=== PATIENT | female | born 1950 | race Caucasian/White ===

== ENCOUNTER 2019-03-28 10:00 | Inpatient (IN) | payer OTHER ==
[2019-03-20 12:41] VITALS: BMI 30.9
[2019-04-03] MEDS ORDERED: CEFAZOLIN 2 GM in DEXTROSE 5%-WATER - 100 ML IVPB ONE (14:55)
[2019-04-04] MEDS ORDERED: DEXAMETHASONE SOD PHOSPHATE/PF 10 MG/ML SDV ONE (10:47)
[2019-04-04] MEDS ORDERED: MIDAZOLAM HCL 2 MG/2 ML SINGLE DOSE VIAL ONE ×2 (10:47→12:44)
[2019-04-04] MEDS ORDERED: CEFAZOLIN 2 GM in DEXTROSE 5%-WATER - 50 ML IVPB ONE (12:19)
[2019-04-04] MEDS ORDERED: VANCOMYCIN 1,000 MG in DEXTROSE 5%-WATER - 250 ML IVPB ONE (12:19)
[2019-04-04] MEDS ORDERED: TRANEXAMIC ACID 1000 MG/10 ML VIAL IVPUSH ONE (12:19)
--- NOTE | 2019-04-04 12:21 | PN ---
Progress Note (short form) - Note Progress Note: 69F s/p RIGHT total hip replacement POD #0. -Pain control: per anaesthesia team. -DVT PPx: -Chemical: ASA 81mg PO BID x 6 weeks. -Mechanical: TJ's, SCD's. -Incentive spirometry q15 min. -PT/OT/Rehab, OOB. -WBAT RLE. -Post-op Ancef x 3 doses. -f/u post-op TOV: 8 hours max. -f/u AM labs. -Diet as tolerated. -Care per medical hospitalist team. -Discharge planning: f/u [facility] [place] [facility] 7-10 days after hospital discharge; call for appointment . -Will follow. Heladio Williamson MD (Orthopaedic Surgery).
--- NOTE | 2019-04-04 12:23 | OP ---
Operative Note - Note: Operative Date: 04/04/19 Pre-Operative Diagnosis: Right hip osteoarthritis Operation: Right total hip replacement Implants: [place]. Cup - Trident-II Tritanium 48. Poly - 32mm, neutral. Stem - Accolade II, #4, high offset. Head - 32mm diameter, -4mm length Biolox/Delta Ceramic Post-Operative Diagnosis: Same as Pre-op Surgeon: Heladio Williamson Tool Technician: Silas Williamson Anesthesiologist/CASTING TECHNICIAN: Digna Faria Anesthesia: Spinal Specimens Removed: Right femoral head Estimated Blood Loss (mls): 150 Fluid Volume Replaced (mls): 1,500 (Crystalloid) Operative Report Dictated: Yes
[2019-04-04] MEDS ORDERED: TRANEXAMIC ACID 1000 MG/10 ML VIAL ONE ×2 (12:44→15:27)
[2019-04-04] MEDS ORDERED: DEXAMETHASONE SOD PHOSPHATE 4 MG/1 ML VIAL ONE (13:57)
[2019-04-04] MEDS ORDERED: ONDANSETRON 4 MG/2 ML VIAL ONE (13:57)
[2019-04-04] MEDS ORDERED: ceFAZolin SODIUM 1 GM VIAL ONE ×2 (13:57→15:27)
[2019-04-04] MEDS ORDERED: SODIUM CHLORIDE 0.9% P/F 10 ML VIAL IJ ONE (14:35)
[2019-04-04] MEDS ORDERED: MORPHINE SULFATE 10 MG/1 ML *VIAL ONE ×2 (14:47→14:48)
[2019-04-04] MEDS ORDERED: PROPOFOL 20 ML ONE ×2 (14:53)
[2019-04-04] MEDS ORDERED: MAG HYDROX/AL HYDROX/SIMETH 30 ML UNIT-DOSE CUP PO PRN (16:29)
[2019-04-04] MEDS ORDERED: ONDANSETRON 4 MG/2 ML VIAL IVPUSH PRN ×2 (16:29→16:33)
[2019-04-04] MEDS ORDERED: MAGNESIUM HYDROX 2400MG/30ML ORAL SUSPENSION 30 ML CUP PO PRN (16:29)
[2019-04-04] MEDS ORDERED: oxyCODONE HCL 5 MG TABLET PO PRN (16:30)
[2019-04-04] MEDS ORDERED: LACTATED RINGERS SOLUTION 1,000 ML IV SCH ×2 (16:30→16:45)
[2019-04-04] MEDS: ACETAMINOPHEN 1000 MG/100 ML VIAL (NON FORMULARY) IVPB ONE ×2 (16:40→17:43)
--- NOTE | 2019-04-04 16:55 | HP ---
HISTORY OF PRESENT ILLNESS: 69 year-old female with a PMH significant for HTN, HLD and degenerative joint disease s/p right total hip replacement earlier today with Dr. Williamson. PAST MEDICAL HISTORY: Hypertension Hyperlipidemia Degenerative joint disease PAST SURGICAL HISTORY: Left foot surgery Social History: Smoking: never Alcohol: no Drugs: no Family history: mother [place]; father [place] Allergies No Known Drug Allergies Allergy (Verified 04/04/19 11:17) seasonal Allergy (Uncoded 03/20/19 12:28) HOME MEDICATIONS: Home Medications Medication Instructions Recorded Allopurinol 300 mg PO DAILY 03/20/19 Amlodipine Besylate/Benazepril 2 each PO DAILY 03/20/19 [Amlodipine-Benazepril 5-20 mg] Aspirin [Adult Aspirin Regimen] 81 mg PO DAILY 03/20/19 Cholecalciferol (Vitamin D3) 2,000 unit PO DAILY 03/20/19 [Vitamin D] Cyanocobalamin (Vitamin B-12) 2,500 mcg PO DAILY 03/20/19 [Vitamin B12] Furosemide [Lasix -] 20 mg PO DAILY 03/20/19 Ibuprofen/Famotidine [Duexis 1 each PO BID PRN 03/20/19 800-26.6 mg Tablet] Loratadine 10 mg PO DAILY PRN 03/20/19 Magnesium 200 mg PO DAILY 03/20/19 Multivitamin [One-Daily 1 each PO DAILY 03/20/19 Multi-Vitamin] Potassium 99 mg PO DAILY 03/20/19 Simvastatin [Zocor] 20 mg PO DAILY 03/20/19 REVIEW OF SYSTEMS CONSTITUTIONAL: Absent: fever, chills, diaphoresis, generalized weakness, malaise, loss of appetite, weight change HEENT: Absent: rhinorrhea, nasal congestion, throat pain, throat swelling, difficulty swallowing, mouth swelling, ear pain, eye pain, visual changes CARDIOVASCULAR: Absent: chest pain, syncope, palpitations, irregular heart rate, lightheadedness , peripheral edema RESPIRATORY: Absent: cough, shortness of breath, dyspnea with exertion, orthopnea, wheezing, stridor, hemoptysis GASTROINTESTINAL: Absent: abdominal pain, abdominal distension, nausea, vomiting, diarrhea, constipation, melena, hematochezia GENITOURINARY: Absent: dysuria, frequency, urgency, hesitancy, hematuria, flank pain, genital pain MUSCULOSKELETAL: Absent: myalgia, arthralgia, joint swelling, back pain, neck pain SKIN: Absent: rash, itching, pallor HEMATOLOGIC/IMMUNOLOGIC: Absent: easy bleeding, easy bruising, lymphadenopathy, frequent infections ENDOCRINE: Absent: unexplained weight gain, unexplained weight loss, heat intolerance, cold intolerance NEUROLOGIC: Absent: headache, focal weakness or paresthesias, dizziness, unsteady gait, seizure, mental status changes, bladder or bowel incontinence PSYCHIATRIC: Absent: anxiety, depression, suicidal or homicidal ideation, hallucinations. PHYSICAL EXAMINATION Vital Signs - 24 hr 04/04/19 11:20 Temperature 98.6 F Pulse Rate 104 H Respiratory 16 Rate Blood Pressure 147/78 GENERAL: Awake, alert, and fully oriented, in no acute distress. LUNGS: Breath sounds equal, clear to auscultation bilaterally. No wheezes, and no crackles. No accessory muscle use. HEART: Regular rate and rhythm, normal S1 and S2 ABDOMEN: Soft, nontender, not distended UPPER EXTREMITIES: 2+ pulses, warm, well-perfused. No cyanosis. No clubbing. No peripheral edema. LOWER EXTREMITIES: 2+ pulses, warm, well-perfused. No calf tenderness. No peripheral edema. RLE: Surgical right hip dressing c/d/i, no drain NEUROLOGICAL: Cranial nerves II-XII intact. Normal speech. Pre op Hgb 13.4 BUN 24 Cr 0.9 Intra op Ancef total 3g, vanc 1g EBL 150mL LR 1500mL ASSESSMENT/PLAN: 69 year-old female with a PMH significant for HTN, HLD and degenerative joint disease s/p right total hip replacement earlier today with Dr. Williamson. --POD #0 --perioperative antibiotics per surgery --pain management per surgery --ASA 81mg BID --protonix --bowel regimen --incentive spirometry --no jc, no drains Hypertension --continue amlodipine, lisinopril, lasix in am Hyperlipidemia --continue statin FEN Fluids: LR@125mL/hr Electrolytes: replete as indicated Nutrition: regular diet DVT prophylaxis: OOB, ambulation, SCDs, TEDs, ASA 81mg BID Physical therapy Dispo: continues to require inpatient care. Full code. Visit type - Emergency Visit Emergency Visit: No - New Patient This patient is new to me today: Yes Date on this admission: 04/04/19 - Critical Care Critical Care patient: No
--- NOTE | 2019-04-04 20:41 | OP ---
Date of Operation: 04/04/2019 Surgeon: Heladio Williamson M.D. Home Stereo Equipment Installer: Silas Williamson M.D., Mikal Estrada P.A.-C. Pre-Operative Diagnosis: Primary osteoarthritis right hip. Post-Operative Diagnosis: Primary osteoarthritis right hip. Surgical Procedure: Right total hip replacement via Direct Suprior approach. Anaesthesia: Spinal, block. Position: Left lateral decubitus. Incision: Direct superior. Estimated Blood Loss: 150cc. Intravenous Fluid: 1.5L crystalloid. Specimens: Right femoral head. Drains: None. Complications: None. Urine output: None. Bacteriology: None. Transfusions: None. Closure: #1 Vicryl, 3-0 Biosyn. Indications: The patient was indicated for a right total hip replacement in order to facilitate improved motion and mobilization, and to prevent the complications associated with a sedentary lifestyle. The patient was identified in the holding area by her armband. A long discussion was held with the patient (in the presence of the patient's family) regarding the risks, benefits and alternatives of the above named procedure. Risks include but are not limited to: pain, bleeding, infection, damage to surrounding structures (including nerves, blood vessels, skin, ligaments, tendons and bone), wound complications, failure of hardware/implants/ reduction, leg length discrepancy, need for further surgery, blood clots, myocardial infarction, pulmonary embolism, cerebrovascular insult, anaesthesia complications, compartment syndrome, limb loss, limp, loss of function, and . Benefits as mentioned above. Alternatives include no surgery. All questions were answered. The patient understood and agreed to the procedure. Informed consent was obtained, witnessed and verified. The patients correct operative limb - that is the right lower extremity - was marked, and the patient was taken to the operating room after being seen by the anesthesia and nursing staff. Procedure: The patient was brought into the operating room, placed on the OR table and secured with a safety strap. Consent and the operative site were again verified with the patient and nursing and anaesthesia staff. Anaesthesia, IV antibiotics, and TXA were then administered without complication. A time out was done, led by me the attending surgeon. A pre-operative orthpaedic exam revealed a flexion contracture of the left knee with the left lower extremity being approximately 1-1.5cm shorter than the right lower extremity. The patient was gently turned into the left lateral decubitus position. An axillary roll was placed. A Stulberg hip positioner with well-padded bolsters was used to secure the patient in the lateral decubitus position. The down arm was placed on a well-padded arm board. The up arm was brought across the patients body and placed on 2 pillows. Foam egg crates were placed under the down knee and ankle, and bony prominences were well padded. The operative site was then prepped and draped in the standard sterile fashion. Time out was again done and the case began. Operation: A standard Direct Superior surgical approach was utilized to access the hip joint. With a #10 blade, a skin incision was taken from the posterior-superior corner of the greater trochanter in a posterior-superior direction. This was approximately 10cm in length. Electrocautery was utilized to carry the deep dissection down to the level of the gluteus wan fascia. Hemostasis was assured using electrocautery (bipolar and unipolar). The gluteus wan fascia was incised, and the fibers of gluteus wan were in line with the trajectory of the incision. This confirmed the accuracy of our planned incision based on palpated landmarks and surface anatomy. A Almaguer elevator was used to split the distal fibers of gluteus wan, in line with the fibers, just proximal to their insertion into the iliotibial band. Great care was taken not to incise the iliotibial band. Gluteus wan fibers were split proximally using the Almaguer elevator until reaching the apex of the wound. Again, hemostasis was assured. The rosalind-capsular fat pad was exposed utilizing curved handle bar retractors. The rosalind-capsular fat pad was excised off the inferior border of the gluteus medius muscle belly, exposing the insertion of the hip short external rotator muscle group. The piriformis tendon was identified and freed from adhesions to the capsule using a 90-degree clamp. This tendon was then released from its insertion using electrocautery. The tendon was tagged with a # 2 Fiberwire suture and tied to the inferior aspect of the proximal wound apex. The tendon, thus, served as a sling to retract and protect the sciatic nerve. With the piriformis tendon reflected away from its insertion, the hip joint capsule was visualized. Electrocautery was used to perform a capsulotomy and synovial joint fluid was aspirated. Next, the superior leaflet of the capsule was elevated using a Almaguer elevator to create separation from the underlying labrum and also to create a plane for later placement of a supra-acetabular retractor. The labrum was excised using electrocautery. The hip was then gently dislocated. A standard femoral neck cut was made using an oscillating saw. A threaded Steinmann pin was delivered into the femoral head using mallet strikes. The femoral head was then removed. Anterior, inferior, and supra- acetabular retractors were placed to expose the acetabulum. The pulvinar was excised using electrocautery. Sharp basket reamers were used to prepare the acetabular bone bed. Healthy blushes of bleeding were observed from the reamed cancellous bone bed. Next, a size 48mm [place] Trident cup was impacted into position, achieving excellent press-fit. A size 32mm neutral polyethylene liner was then impacted into the cup. Excellent placement of the polyethylene liner, and excellent press fit of the cup were confirmed. Next, attention was turned to femoral preparation. The anterior and supra-acetabular retractors were removed. The cut femoral neck was then exposed using the inferior acetabular retractor around the calcar, and a straight 90-degree retractor to retract gluteus medius. The box-cutter osteotome was used with a mallet to removed bone from the lateral femoral neck. An opening reamer was delivered by hand to find the femoral canal. A lateralizing reamer was used with power to lateralize the proximal entry into the canal, so as to avoid placing the stem into varus. The femoral bone bed was then prepared using broaches with gentle mallet strikes. The tibia was used as a goniometer with which to dial in approximately 5 degrees of stem anteversion. Trial components were assembled and the hip was reduced. The hip was taken through a full range of motion and proved stable throughout this range of motion, including at the extremes of positions of compromised. All trial femoral components were removed. Another 1g of IV Ancef was administered so that the bone bed would be rich with antibiotic at the time of seating of the femoral implant. A [place] Accolade II (127-degree NSA, high offset) #4 stem was then implanted using gentle mallet strikes, diligently matching the prepared degree of stem anteversion. With the stem fully seated, a 32mm length, -4mm diameter ceramic/Biolox femoral head was then selected and implanted. The hip was once again reduced, and taken through a full range of motion. Stability was once again assured. The periarticular myofascial tension was balanced. Leg length was satisfactory. The wounds were copiously irrigated , as they had been regularly throughout the case so as to keep the retracted tissues wet, and in order to flush out wound debris. The capsule was primarily repaired using #1 Vicryl sutures in simple interrupted fashion. The tagged piriformis tendon was released and too tight to be tied to the posterior- lateral corner of the greater trochanter. The remaining wounds were again irrigated. Hemostasis was assured and the wound was closed primarily using #1 Vicryl sutures. A 3-0 Biosyn suture was used to perform a subcuticular wound closure. A sterile, compressive dressing was applied. The sponge and needle counts were correct at the end of the case and the attending was present and scrubbed throughout the case. The patient was then transferred into a supine position and onto the hospital bed. A standard AP-pelvis x-ray was taken, demonstrating good overall alignment with a well reduced, congruent hip. There was no evidence of subsidence, loosening, or rosalind-prosthetic fracture. The patient was then was then transferred to the recovery room without incident/complications and in stable condition, having tolerated the procedure well. MD MEG [id number] MTDD
[2019-04-04] MEDS: oxyCODONE HCL 10 MG SUSTAINED ACTING TABLET PO SCH (21:16)
[2019-04-04] MEDS: SENNOSIDES/DOCUSATE COMBO (SENNA PLUS) TABLET (UD) PO SCH (21:16)
[2019-04-04] MEDS: oxyCODONE HCL 5 MG TABLET PO PRN (21:17)
[2019-04-04] MEDS: ACETAMINOPHEN 325 MG TABLET (FP) PO SCH (21:18)
[2019-04-04] MEDS: CEFAZOLIN 1 GM/D5W 1 GM/50 ML BAG IVPB SCH (21:18)
[2019-04-04] MEDS ORDERED: ASPIRIN 81 MG CHEWABLE TABLETS ONE (21:20)
[2019-04-04] MEDS ORDERED: ASPIRIN 325 MG TABLET PO SCH (22:00)
[2019-04-04] MEDS ORDERED: ATORVASTATIN CA 10 MG TABLET (FP) PO SCH (22:00)
[2019-04-05] MEDS: ACETAMINOPHEN 325 MG TABLET (FP) PO SCH ×3 (03:13→15:34)
[2019-04-05] MEDS: CEFAZOLIN 1 GM/D5W 1 GM/50 ML BAG IVPB SCH ×2 (03:37→09:39)
[2019-04-05 08:55] LABS: HEMATOCRIT 32.6 % (32.4-45.2); MCH 32.3 pg (25.7-33.7); MCHC 33.8 g/dl (32.0-36.0); MEAN CELL VOLUME 95.3 fl (80-96); MEAN PLT VOLUME 9.7 fl (7.5-11.1); PLATELET COUNT 184 K/MM3 (134-434); RBC 3.42 M/mm3 (3.60-5.2); WHITE BLOOD COUNT 11.6 K/mm3 (4.0-10.8)
[2019-04-05 09:06] LABS: CREATININE 0.8 mg/dl (0.55-1.3); POTASSIUM 3.7 mmol/L (3.5-5.1)
--- NOTE | 2019-04-05 09:28 | PN ---
Physical Exam: SUBJECTIVE: Patient seen and examined OBJECTIVE: Vital Signs Period Temp Pulse Resp BP Sys/Kaplan Pulse Ox Last 24 Hr 97.7 F-98.6 F 18-104 14-18 104-147/42-78 95-100 GENERAL: The patient is awake, alert, and fully oriented, in no acute distress. HEAD: Normal with no signs of trauma. EYES: PERRL, extraocular movements intact, sclera anicteric, conjunctiva clear. No ptosis. ENT: Ears normal, nares patent, oropharynx clear without exudates, moist mucous membranes. NECK: Trachea midline, full range of motion, supple. LUNGS: Breath sounds equal, clear to auscultation bilaterally, no wheezes, no crackles, no accessory muscle use. HEART: Regular rate and rhythm, S1, S2 without murmur, rub or gallop. ABDOMEN: Soft, nontender, nondistended, normoactive bowel sounds, no guarding, no rebound, no hepatosplenomegaly, no masses. EXTREMITIES: 2+ pulses, warm, well-perfused, no edema. NEUROLOGICAL: Cranial nerves II through XII grossly intact. Normal speech, gait not observed. PSYCH: Normal mood, normal affect. SKIN: Warm, dry, normal turgor, no rashes or lesions noted Laboratory Results - last 24 hr 04/05/19 04/05/19 08:40 08:40 WBC 11.6 H RBC 3.42 L Hgb 11.0 Hct 32.6 MCV 95.3 MCH 32.3 MCHC 33.8 RDW 13.0 Plt Count 184 MPV 9.7 Sodium 138 Potassium 3.7 Chloride 105 Carbon Dioxide 25 Anion Gap 8 BUN 18.0 Creatinine 0.8 Est GFR (CKD-EPI)AfAm 87.18 Est GFR (CKD-EPI)NonAf 75.22 Random Glucose 141 H Calcium 9.0 Active Medications Generic Name Dose Route Start Last Admin Trade Name Freq PRN Reason Stop Dose Admin Acetaminophen 650 mg 04/04/19 22:00 04/05/19 03:13 Tylenol - PO 04/07/19 21:59 650 mg Q6H SAL Administration Al Hydroxide/Mg Hydroxide 30 ml 04/04/19 16:29 Mylanta Oral Suspension - PO Q4H PRN DYSPEPSIA Allopurinol 300 mg 04/05/19 10:00 Zyloprim - PO DAILY [facility] Amlodipine Besylate 10 mg 04/05/19 10:00 Norvasc - PO DAILY [facility] Aspirin 81 mg 04/05/19 10:00 Ecotrin - PO BID [facility] Atorvastatin Calcium 10 mg 04/04/19 22:00 04/04/19 21:16 Lipitor - PO 10 mg HS SAL Administration Furosemide 20 mg 04/05/19 10:00 Lasix - PO DAILY [facility] Cefazolin Sodium 1 gm in 50 mls @ 100 mls/hr 04/04/19 21:00 04/05/19 03:37 Ancef 1 Gm Premixed Ivpb - IVPB 04/05/19 09:29 100 mls/hr Q6H SAL Administration Lactated Ringer's 1,000 mls @ 125 mls/hr 04/04/19 16:45 04/04/19 17:43 Lactated Ringers Solution IV Not Given ASDIR [facility] Lisinopril 40 mg 04/05/19 10:00 Prinivil PO DAILY [facility] Magnesium Hydroxide 30 ml 04/04/19 16:29 Milk Of Magnesia - PO PRN PRN CONSTIPATION Ondansetron HCl 4 mg 04/04/19 16:29 Zofran Injection IVPUSH Q6H PRN NAUSEA Oxycodone HCl 5 mg 04/04/19 16:30 04/04/19 21:17 Roxicodone - PO 5 mg Q3H PRN Administration PAIN LEVEL 1-5 Oxycodone HCl 10 mg 04/04/19 16:30 Roxicodone - PO Q3H PRN PAIN LEVEL 6-10 Oxycodone HCl 10 mg 04/04/19 22:00 04/04/19 21:16 Oxycontin - PO 04/07/19 16:30 10 mg BID [facility] Administration Pantoprazole Sodium 40 mg 04/05/19 10:00 Protonix - PO DAILY [facility] Senna/Docusate Sodium 2 tablet 04/04/19 22:00 04/04/19 21:16 Pericolace - PO 2 tablet BID [facility] Administration ASSESSMENT/PLAN:
[2019-04-05] MEDS: oxyCODONE HCL 10 MG SUSTAINED ACTING TABLET PO SCH (09:42)
[2019-04-05] MEDS: SENNOSIDES/DOCUSATE COMBO (SENNA PLUS) TABLET (UD) PO SCH (09:42)
--- NOTE | 2019-04-05 09:52 | PN ---
Progress Note (short form) - Note Progress Note: 69F s/p RIGHT total hip replacement POD #1. Pain well controlled. Right groin pain improved. (+) Incisional pain. No acute events overnight. Pt. denies overnight history of headaches, chest pain, shortness of breath, nausea, vomiting, chills, & sweats. (+) Voiding; (+) Flatus; (-) BM. (+) Out of bed to chair. All labs and vitals reviewed. PE: AAO x 3, NAD. R-Hip: Dressing C/D/I. B/L LE neurovascular exam at baseline. 69F s/p RIGHT total hip replacement POD #1. -Pain control: per anaesthesia team. -Offload heals with rolled towels under ankles to avoid heel ulcers/pressure sores. -DVT PPx: -Chemical: ASA 81mg PO BID x 6 weeks. -Mechanical: TJ's, SCD's. -Incentive spirometry q15 min. -PT/OT/Rehab, OOB. -WBAT RLE. -Post-op Ancef x 3 doses. -f/u AM labs. -Diet as tolerated. -Care per medical hospitalist team. -Discharge planning: f/u [facility] [place] [facility] 7-10 days after hospital discharge; call for appointment . -Will follow. Heladio Williamson MD (Orthopaedic Surgery).
[2019-04-05] MEDS ORDERED: FUROSEMIDE 20 MG TABLET (FP) PO SCH (10:00)
[2019-04-05] MEDS ORDERED: PATIENT'S OWN MEDICATION (NON-FORMULARY) (Amlodipine Besylate/Benazepril [Amlodipine-Benaz PO SCH (10:00)
[2019-04-05] MEDS ORDERED: ALLOPURINOL 300 MG TABLET (FP) PO SCH (10:00)
[2019-04-05] MEDS ORDERED: ASPIRIN COATED 81 MG TABLET.EC PO SCH (10:00)
[2019-04-05] MEDS ORDERED: LISINOPRIL 20 MG TABLET (FP) PO SCH (10:00)
[2019-04-05] MEDS ORDERED: amLODIPine BESYLATE 10 MG TABLET (FP) PO SCH (10:00)
[2019-04-05] MEDS ORDERED: PANTOPRAZOLE 40 MG TABLET (FP) PO SCH (10:00)
[2019-04-05] MEDS: oxyCODONE HCL 5 MG TABLET PO PRN (15:34)
--- NOTE | 2019-04-05 15:55 | DS ---
"Physical Exam: SUBJECTIVE: Patient seen and examined. Patient stated that she would have to pay out of pocket if she had to stay in the hospital another day. While crying the Patient explained the details to her nurse after speaking with the insurance company. Dr. Williamson contacted and stated if the patient was stable and if deemed suitable from the hospitalist JUNITO medically, she could go home today. OBJECTIVE: Vital Signs Period Temp Pulse Resp BP Sys/Kaplan Pulse Ox Last 24 Hr 97.7 F-98.5 F 18-86 14-18 104-137/42-61 95-100 PHYSICAL EXAM GENERAL: The patient is awake, alert, and fully oriented, in no acute distress. HEAD: Normal with no signs of trauma. EYES: PERRL, extraocular movements intact, sclera anicteric, conjunctiva clear. ENT: Ears normal, nares patent, oropharynx clear without exudates, moist mucous membranes. NECK: Trachea midline, full range of motion, supple. LUNGS: Breath sounds equal, clear to auscultation bilaterally, no wheezes, no crackles, no accessory muscle use. HEART: Regular rate and rhythm, S1, S2 without murmur, rub or gallop. ABDOMEN: Soft, nontender, nondistended, normoactive bowel sounds, no guarding, no rebound, no hepatosplenomegaly, no masses. EXTREMITIES: 2+ pulses, warm, well-perfused, no edema. Surgical site c/d/i NEUROLOGICAL: Cranial nerves II through XII grossly intact. Normal speech, gait not observed. PSYCH: Normal mood, normal affect. SKIN: Warm, dry, normal turgor, no rashes or lesions noted. LABS Laboratory Results - last 24 hr 04/05/19 04/05/19 08:40 08:40 WBC 11.6 H RBC 3.42 L Hgb 11.0 Hct 32.6 MCV 95.3 MCH 32.3 MCHC 33.8 RDW 13.0 Plt Count 184 MPV 9.7 Sodium 138 Potassium 3.7 Chloride 105 Carbon Dioxide 25 Anion Gap 8 BUN 18.0 Creatinine 0.8 Est GFR (CKD-EPI)AfAm 87.18 Est GFR (CKD-EPI)NonAf 75.22 Random Glucose 141 H Calcium 9.0 HOSPITAL COURSE: Date of Admission:04/04/19 Date of Discharge: 04/05/19 69 year-old female with a PMH significant for HTN, HLD and degenerative joint disease s/p right total hip replacement earlier today with Dr. Williamson. --POD #1 --perioperative antibiotics per surgery --pain management per surgery --ASA 81mg BID x 6 weeks --protonix --bowel regimen --incentive spirometry --no jc, no drains Hypertension --continue amlodipine, lisinopril, lasix in am Hyperlipidemia --continue Atrovastatin 10mg PO HS FEN Fluids: LR@125mL/hr Electrolytes: replete as indicated Nutrition: regular diet DVT prophylaxis: OOB, ambulation, SCDs, TEDs, ASA 81mg BID Physical therapy Dispo: continues to require inpatient care. Full code. Minutes to complete discharge: 45 Discharge Summary Problems reviewed: Yes Reason For Visit: HIP OSTEOARTHRITIS Condition: Good - Instructions Diet, Activity, Other Instructions: Dr. Williamson Discharge Instructions for Hip Replacement Post Operative Instructions Physical activity Physical Therapist will come to your home for the first 5 days. You will be set up with outpatient PT at your first post-operative visit. Use assistive devices for ambulation at all times. Weight bearing as tolerated on your surgical side. Wound care Leave your surgical dressing in place. Do not change the dressing until seen by your surgeon in the office. No baths or showers. Do not submerge your incision. Do not apply any ointments or lotions to your incision. Please call the office if your dressing is soiled/dirty or is falling off. Apply Graduated Compression Stockings (TEDS) to both lower extremities-remove daily for hygiene ONLY. Diet There are no dietary restrictions. Eat healthy, high-fiber foods. Drink 6 to 8 glasses of liquid each day. This will assist in keeping your bowels are regular. Pain management Any pain prescription medication ordered should be taken as prescribed for moderate to severe pain. Do not take additional Tylenol while taking Percocet. Posterior Hip Precautions: Do not cross the leg you had surgery on over your other leg. (Do not cross your legs.)Use an elevated toilet seat. Do not sit on low chairs or beds. Use purple pillow (abductor) when lying in bed. Take Aspirin 81 mg two times a day for a total of 6 weeks to prevent blood clots. ISTOP: This report was requested by: Antony Che | Reference #: [id number] Call Dr. Williamson for any of the following: Severe pain not relieved by medication Fever of 101 or higher Excessive bleeding or drainage on dressing Inability to urinate If you experience chest pain or shortness of breath, please seek emergency care immediately. Please call the office at to confirm your post-op appointment for the week following surgery. Follow up [facility] 7-10 days after hospital discharge; call for appointment .FOLLOW UP WITH ON TUESDAY IN HIS OFFICE. Disposition: HOME - Home Medications Comprehensive Discharge Medication List: Ambulatory Orders Allopurinol 300 mg PO DAILY 03/20/19 Amlodipine Besylate/Benazepril [Amlodipine-Benazepril 5-20 mg] 2 each PO DAILY 03/20/19 Aspirin [Adult Aspirin Regimen] 81 mg PO DAILY 03/20/19 Cholecalciferol (Vitamin D3) [Vitamin D] 2,000 unit PO DAILY 03/20/19 Cyanocobalamin (Vitamin B-12) [Vitamin B12] 2,500 mcg PO DAILY 03/20/19 Furosemide [Lasix -] 20 mg PO DAILY 03/20/19 Ibuprofen/Famotidine [Duexis 800-26.6 mg Tablet] 1 each PO BID PRN 03/20/19 Loratadine 10 mg PO DAILY PRN 03/20/19 Magnesium 200 mg PO DAILY 03/20/19 Multivitamin [One-Daily Multi-Vitamin] 1 each PO DAILY 03/20/19 Potassium 99 mg PO DAILY 03/20/19 Simvastatin [Zocor] 20 mg PO DAILY 03/20/19 Follow Up with [facility] 7-10 days after hospital discharge; call for appointment . Prescription Drug Monitoring Program (I-STOP) results: I-STOP reviewed and no issues identified This patient is new to me today: Yes Date on this admission: 04/05/19 Emergency Visit: No Critical Care patient: No - Discharge Referral Referred to [facility] Med [facility].C.: No"
[2019-04-05 18:14] VITALS: BP 130/52; PULSE 75; TEMP 98.5
--- NOTE | 2019-04-09 16:33 | PATH ---
Surgical Pathology Report Patient Name: ASHANTI BARILLAS Med. Rec. #: [id number] /Age/Gender: 1950 (Age: 69) / F Account: [id number] [facility] Taken: 04/04/2019 Received: 04/04/2019 Reported: 04/09/2019 Physicians: Heladio Williamson M.D. Specimen(s) Received RIGHT FEMORAL HEAD Clinical History Right hip osteoarthritis Final Diagnosis BONE, FEMORAL HEAD, RIGHT, TOTAL HIP REPLACEMENT: BONE WITH DEGENERATIVE JOINT DISEASE. Electronically Signed Sierra Bradshaw M.D. Gross Description Received in formalin, labeled "right femoral head," is a 4.0 x 4.0 x 3.3 cm. femoral head with a 1.2 cm in length portion of femoral neck attached. The margin of resection is smooth. There is a 1.2 cm greatest dimension area of eburnation present. The remaining articular surface is newsome-yellow and diffusely granular. The underlying trabecular bone is yellow and hard. A asset protection representative section is submitted in one cassette, following decalcification. 04/06/2019 saudi04/06/2019
== END 2019-04-05 18:08 | disposition home or self-care (01) | DRG 470 ==
LOC: FM/S 04-04 10:16
PROVIDERS: ADMIT Orthopaedic Surgery Adult Reconstructive Orthopaedic Surgery; ATTEND Nurse Practitioner Acute Care
PROC: 0SR903A Replacement of Right Hip Joint with Ceramic Synthetic Substitute, Uncemented, Open Approach (ICD-10-PCS; principal; 2019-04-04 14:24)
DX: M16.11 Unilateral primary osteoarthritis, right hip (principal); I10 Essential (primary) hypertension; E78.5 Hyperlipidemia, unspecified
CPT/HCPCS: 36415; 73523-TC-FY; 80048; 85027; 88305-TC; 88311-TC; 94760; 97116-GP; 97161-GP; J0131